=== PATIENT | male | born 1990 | race Caucasian/White ===

== ENCOUNTER 2022-03-20 13:10 | Observation (INO) | payer OTHER ==
[~2022-03-20] VITALS: Ht 172.7 cm; Wt 113.3 kg
[2022-03-20 13:20] VITALS: BP 133/78
[2022-03-20] MEDS ORDERED: LEXAPRO20 MG PO (13:42)
[2022-03-20] MEDS ORDERED: DEXT30CA6 PO (13:42)
[2022-03-20] MEDS ORDERED: CETI10CA PO (13:42)
[2022-03-20] MEDS ORDERED: ACETAMINOPHEN 325 MG TABLET. PO PRN (14:00)
[2022-03-20] MEDS ORDERED: MORPHINE SULFATE 2 MG/ML INJ. IV PRN (14:00)
[2022-03-20] MEDS ORDERED: ALBUTEROL SULFATE 2.5 MG/3 ML NEBU. NEB PRN (14:00)
[2022-03-20] MEDS ORDERED: KETOROLAC 15 MG/ML VIAL. IV PRN (14:00)
[2022-03-20] MEDS ORDERED: MAGNESIUM HYDROXIDE 2,400 MG/30 ML ORAL.SUSP. PO PRN (14:00)
[2022-03-20] MEDS ORDERED: BISACODYL 10 MG SUPP.RECT. PR PRN (14:00)
[2022-03-20] MEDS ORDERED: IV RINGERS,LACTATED 1000ML 1,000 ML IV SCH (14:00)
--- NOTE | 2022-03-20 14:12 | PDOC1 ---
History and Physical Date of Admission Date of Admission DATE: 03/20/22 TIME: 13:57 Identification/Chief Complaint Chief Complaint Rectal foreign body Source Source: Patient History of Present Illness History of Present Illness Mr Martinez is a 31-year-old male with PMHx ADHD, asthma, seasonal allergies who presented to [facility] ED in [place], [place] with his with concern for rectal foreign body. He notes he experimentally lodged a plastic ice cream scoop in his rectum yesterday, 03/19/2022 around noon. He notes the sensation surprised him and he fell backwards onto a chair and felt the scalp go completely into his body and attempted to dislodge it with 2 fingers in his rectum and was able to touch the edge of the scoop but was not successful and even being able to pull on it. He asked for his 's assistance. He notes that she laughed and advised he should seek medical assistance. Had a little bit of rectal bleeding. It has not come back out. He denies significant pain. No fever or chills. No recent travel or sick contacts He has the urge to have a bowel movement but is only been able to pass gas. He decided to come to the ED for further care. He rarely drinks does not smoke and does not use illicit drugs. 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 A KUB with some mild prominent loops of bowel. A CT scan performed with a 10 cm foreign object with no radiopacity or metallic findings noted centimeters into the rectum. In the ED in [place] speculum examination was performed unable to dislodge object and called [facility] for transfer for surgical evaluation for removal of rectal foreign body. Patient was seen bedside in no significant distress. Past Medical History Pulmonary: Asthma Psych: Depression, Other (ADHD) Past Surgical History Past Surgical History: Other (Right Achilles tendon correction as a child) Family History Family History: Hypertension (Father and paternal grandfather) Social History Smoke: No ALCOHOL: rare Current Medications Current Medications Active Scripts Active Reported Zyrtec (Cetirizine Hcl) 10 Mg Capsule 10 Mg PO DAILY Lexapro (Escitalopram Oxalate) 20 Mg Tablet 1 Tab PO DAILY Adderall Xr 30 Mg Capsule (Dextroamphetamine/Amphetamine) 30 Mg Cap.er.24h 1 Cap PO DAILYWBKFT MDD 1 Capsule(s) 30 Days Allergies Allergies: Coded Allergies: No Known Drug Allergies (Unverified , 03/20/22) ROS General: No: Chills, Night Sweats, Fatigue, Malaise, Appetite, Other PSYCHOLOGICAL ROS: No: Anxiety, Behavioral Disorder, Concentration difficultie, Decreased libido, Depression, Disorientation, Hallucinations, Hostility, Irritablity, Memory difficulties, Mood Swings, Obsessive thoughts, Physical abuse, Sexual abuse, Sleep disturbances, Suicidal ideation, Other Eyes: No Blurry vision, No Decreased vision, No Double vision, No Dry eyes, No Excessive tearing, No Eye Pain, No Itchy Eyes, No Loss of vision, No Photophobia, No Scotomata, No Uses contacts, No Uses glasses, No Other HEENT: No: Heacaches, Visual Changes, Hearing change, Nasal congestion, Nasal discharge, Oral lesions, Sinus pain, Sore Throat, Epistaxis, Sneezing, Snoring, Tinnitus, Vertigo, Vocal changes, Other ALLERGY AND IMMUNOLOGY: No: Hives, Insect Bite Sensitivity, Itchy/Watery Eyes, Nasal Congestion, Post Nasal Drip, Seasonal Allergies, Other Hematological and Lymphatic: No: Bleeding Problems, Blood Clots, Blood Transfusions, Brusing, Night Sweats, Pallor, Swollen Lymph Nodes, Other ENDOCRINE: No: Breast Changes, Galactorrhea, Hair Pattern Changes, Hot Flashes, Malaise/lethargy, Mood Swings, Palpitations, Polydipsia/polyuria, Skin Changes, Temperature Intolerance, Unexpected Weight Changes, Other Breast: No New/Changing Breast Lumps, No Nipple changes, No Nipple discharge, No Other Respiratory: No: Cough, Hemoptysis, Orthopnea, Pleuritic Pain, Shortness of breath, SOB with excertion, Sputum Changes, Stridor, Tachypnea, Wheezing, Other Cardiovascular: No Chest Pain, No Palpitations, No Orthopnea, No Paroxysmal Noc. Dyspnea, No Edema, No Lt Headedness, No Other Gastrointestinal: No Nausea, No Vomiting, No Abdominal Pain, No Diarrhea, No Constipation, No Melena, No Hematochezia, No Other Genitourinary: No Dysuria, No Frequency, No Incontinence, No Hematuria, No Retention, No Discharge, No Urgency, No Pain, No Flank Pain, No Other, No , No , No , No , No , No , No Musculoskeletal: No Gait Disturbance, No Joint Pain, No Joint Stiffness, No Joint Swelling, No Muscle Pain, No Muscular Weakness, No Pain In:, No Swelling In:, No Other Neurological: No Behavorial Changes, No Bowel/Bladder ControlChng, No Confusion, No Dizziness, No Gait Disturbance, No Headaches, No Impaired Coor d/balance, No Memory Loss, No Numbness/Tingling, No Seizures, No Speech Problems, No Tremors, No Visual Changes, No Weakness, No Other Skin: No Dry Skin, No Eczema, No Hair Changes, No Lumps, No Mole Changes, No Mottling, No Nail Changes, No Pruritus, No Rash, No Skin Lesion Changes, No Other, No Acne Physical Exam General: Alert, Oriented X3, Cooperative, mild distress HEENT: Atraumatic, PERRLA, EOMI, Mucous membr. moist/pink Lungs: Clear to auscultation, Normal air movement Heart: S1S2, RRR, no thrills, no rubs, no gallops, no murmurs Abdomen: Normal bowel sounds, Soft, No tenderness, No hepatosplenomegaly, No masses Rectal Exam: other Extremities: No clubbing, No cyanosis, No edema, Normal pulses, No tenderness/swelling Skin: No rashes, No breakdown, No significant lesion Neuro: Normal gait, Normal speech, Strength at 5/5 X4 ext, Normal tone, Sensation intact, Cranial nerves 3-12 NL, Reflexes 2+ Psych/Mental Status: Mental status NL, Mood NL Vitals Vitals Vital Signs Date Time Temp Pulse Resp B/P (MAP) Pulse Ox O2 Delivery O2 Flow Rate FiO2 03/20/22 13:20 98.0 80 18 133/78 (96) 98 Room Air 98.0 Images Images KUB Abdomen: Single view obtained. Projecting over the sacrum asymmetric to the right there is a radiolucency identified measuring approximately 14 x 4 cm. Given the linear appearance with rounded edge a radiolucent foreign body could have this appearance. Cannot assess for intraperitoneal free air on this single supine radiograph but this can be better evaluated on the already ordered CT of the abdomen and pelvis. Nonspecific bowel gas pattern with a mildly prominent loop of small bowel the right-sided the abdomen measuring up to 26 mm. VTE Prophylaxis Ordered VTE Prophylaxis Devices: Yes VTE Pharmacological Prophylaxi: No Assessment/Plan Assessment/Plan Rectal foreign body - no signs of perforation on CT. Discussed with general surgery will attempt to get an OR time soon to be able to remove object likely can go home immediately after removal after observation. No further testing prior to planned surgery Asthma - on symbicort daily and prn albuterol ADHD - on adderall Depression - on lexapro Overweight -counseled on lifestyle modification FEN - NPO PPX - ambulatory FULL CODE Dispo - observation Justifications for Admission Other Justification BRONWYN BERMUDEZ MD Mar 20, 2022 14:12
[2022-03-20 15:00] VITALS: BP 153/78
[2022-03-20 19:00] VITALS: BP 134/79
[2022-03-20] MEDS ORDERED: MORPHINE SULFATE 2 MG/ML INJ. IVP PRN (20:00)
[2022-03-20 23:00] VITALS: BP 132/64
[2022-03-21] VITALS (9 sets, daily range): BP systolic 109–140; BP diastolic 61–88
[2022-03-21] MEDS ORDERED: PROCHLORPERAZINE 10 MG/2 ML VIAL. IVP PRN (06:00)
[2022-03-21] MEDS ORDERED: fentaNYL PF VIAL 100 MCG/2 ML VIAL IVP PRN ×2 (06:00)
[2022-03-21] MEDS ORDERED: IV RINGERS,LACTATED 1000ML 1,000 ML IV SCH (06:00)
[2022-03-21] MEDS ORDERED: HYDROmorphone 2 MG/ML INJ. IVP PRN (06:00)
--- NOTE | 2022-03-21 07:44 | PDOC2 ---
CONSULT Date of Consult Date of Consult DATE: 03/21/22 TIME: 07:41 History of Present Illness Reason for Visit: The patient is a 31 year old male who reported to [facility] ER yesterday due to a rectal foreign body. He states he introduced a plastic scoop in the rectum two days ago and was unable to retrieve it. He reports a small amount of bleeding and no pain. Past Medical History Pulmonary: Asthma Psych: Depression, Other (ADHD) Past Surgical History Past Surgical History: Other (Right Achilles tendon correction as a child) Family History Family History: Hypertension (Father and paternal grandfather) Social History No ALCOHOL: rare Current Medications Current Medications Current Medications Ringer's Solution 1,000 ml @ 100 mls/hr Q10H IV Last administered on 03/20/22at 14:40; Start 03/20/22 at 14:00; Stop 03/20/22 at 23:59; Status DC Morphine Sulfate (Morphine Sulfate) 2 mg PRN Q1HR PRN IV PAIN-SEE COMMENTS; Start 03/20/22 at 14:00 Ketorolac Tromethamine (Toradol 15mg Vial) 15 mg PRN Q6HRS PRN IV MODERATE PAIN; Start 03/20/22 at 14:00; Stop 03/25/22 at 13:59 Acetaminophen (Tylenol) 650 mg PRN Q6HRS PRN PO Headaches, Temp > 101.5F Last administered on 03/20/22at 20:17; Start 03/20/22 at 14:00 Magnesium Hydroxide (Milk Of Magnesia) 2,400 mg PRN Q12HR PRN PO CONSTIPATION; Start 03/20/22 at 14:00 Bisacodyl (Dulcolax Supp) 10 mg PRN DAILY PRN MT CONSTIPATION; Start 03/20/22 at 14:00 Cetirizine HCl (ZyrTEC) 10 mg DAILY PO ; Start 03/21/22 at 09:00 Non-Formulary Medication (Dextroamphetamine/ Amphetamine (Adderall Xr 30 Mg Capsule)) 1 cap DAILYWBKFT PO ; Start 03/21/22 at 08:00; Status UNV Citalopram Hydrobromide (CeleXA) 40 mg DAILY PO ; Start 03/21/22 at 09:00 Albuterol Sulfate (Ventolin Neb Soln) 2.5 mg PRN Q4HRS PRN NEB SHORTNESS OF BREATH; Start 03/20/22 at 14:00 Fentanyl Citrate (Fentanyl 2ml Vial) 25 mcg PRN Q5MIN PRN IVP MILD PAIN 1-3; Start 03/21/22 at 06:00; Stop 03/21/22 at 20:00 Fentanyl Citrate (Fentanyl 2ml Vial) 50 mcg PRN Q5MIN PRN IVP MODERATE PAIN 4- 6; Start 03/21/22 at 06:00; Stop 03/21/22 at 20:00 Morphine Sulfate (Morphine Sulfate) 1 mg PRN Q10MIN PRN IVP SEVERE PAIN 7-10; Start 03/20/22 at 20:00; Stop 03/21/22 at 19:59 Ringer's Solution 1,000 ml @ 30 mls/hr Q24H IV ; Start 03/21/22 at 06:00; Stop 03/21/22 at 17:59 Hydromorphone HCl (Dilaudid) 0.5 mg PRN Q10MIN PRN IVP SEVERE PAIN 7-10, 2nd CHOICE; Start 03/21/22 at 06:00; Stop 03/21/22 at 20:00 Prochlorperazine Edisylate (Compazine) 5 mg PACU PRN PRN IVP NAUSEA, MRX1; Start 03/21/22 at 06:00; Stop 03/21/22 at 20:00 Active Scripts Active Reported Zyrtec (Cetirizine Hcl) 10 Mg Capsule 10 Mg PO DAILY Lexapro (Escitalopram Oxalate) 20 Mg Tablet 1 Tab PO DAILY Adderall Xr 30 Mg Capsule (Dextroamphetamine/Amphetamine) 30 Mg Cap.er.24h 1 Cap PO DAILYWBKFT MDD 1 Capsule(s) 30 Days Allergies Allergies: Coded Allergies: No Known Drug Allergies (Unverified , 03/20/22) ROS General: No: Chills, Night Sweats, Fatigue, Malaise, Appetite, Other PSYCHOLOGICAL ROS: No: Anxiety, Behavioral Disorder, Concentration difficultie, Decreased libido, Depression, Disorientation, Hallucinations, Hostility, Irritablity, Memory difficulties, Mood Swings, Obsessive thoughts, Physical abuse, Sexual abuse, Sleep disturbances, Suicidal ideation, Other Eyes: No Blurry vision, No Decreased vision, No Double vision, No Dry eyes, No Excessive tearing, No Eye Pain, No Itchy Eyes, No Loss of vision, No Photophobia, No Scotomata, No Uses contacts, No Uses glasses, No Other HEENT: No: Heacaches, Visual Changes, Hearing change, Nasal congestion, Nasal discharge, Oral lesions, Sinus pain, Sore Throat, Epistaxis, Sneezing, Snoring, Tinnitus, Vertigo, Vocal changes, Other ALLERGY AND IMMUNOLOGY: No: Hives, Insect Bite Sensitivity, Itchy/Watery Eyes, Nasal Congestion, Post Nasal Drip, Seasonal Allergies, Other Hematological and Lymphatic: No: Bleeding Problems, Blood Clots, Blood Transfusions, Brusing, Night Sweats, Pallor, Swollen Lymph Nodes, Other ENDOCRINE: No: Breast Changes, Galactorrhea, Hair Pattern Changes, Hot Flashes, Malaise/lethargy, Mood Swings, Palpitations, Polydipsia/polyuria, Skin Changes, Temperature Intolerance, Unexpected Weight Changes, Other Respiratory: No: Cough, Hemoptysis, Orthopnea, Pleuritic Pain, Shortness of breath, SOB with excertion, Sputum Changes, Stridor, Tachypnea, Wheezing, Other Cardiovascular: No Chest Pain, No Palpitations, No Orthopnea, No Paroxysmal Noc. Dyspnea, No Edema, No Lt Headedness, No Other Gastrointestinal: No Nausea, No Vomiting, No Abdominal Pain, No Diarrhea, No Constipation, No Melena, No Hematochezia, No Other Genitourinary: No Dysuria, No Frequency, No Incontinence, No Hematuria, No Retention, No Discharge, No Urgency, No Pain, No Flank Pain, No Other, No , No , No , No , No , No , No Skin: No Dry Skin, No Eczema, No Hair Changes, No Lumps, No Mole Changes, No Mottling, No Nail Changes, No Pruritus, No Rash, No Skin Lesion Changes, No Other, No Acne Physical Exam General: Alert, No acute distress HEENT: Atraumatic, PERRLA Lungs: Clear to auscultation Heart: Regular rate Abdomen: Soft, No tenderness Extremities: No clubbing, No cyanosis Skin: No rashes Neuro: Normal speech Psych/Mental Status: Mental status NL Vitals VITALS Vital Signs Date Time Temp Pulse Resp B/P (MAP) Pulse Ox O2 Delivery O2 Flow Rate FiO2 03/21/22 03:00 98.6 74 16 140/77 (98) 95 Room Air 98.[address] reviewed Assessment/Plan Assessment/Plan 31 year old male with rectal foreign body, no suggestion of perforation. Plan to OR for retrieval under anesthesia. The details and risks of surgery were discussed with the patient. He understands and would like to proceed. WOLFGANG CHAMPAGNE MD Mar 21, 2022 07:44
--- NOTE | 2022-03-21 07:45 | PDOC ---
[employer] PROGRESS NOTE Date of Service DOS: DATE: 03/21/22 TIME: 07:44 Chief Complaint Chief Complaint Rectal foreign body - no signs of perforation on CT. Removed in OR. Can go home immediately after removal after observation. Asthma - on symbicort daily and prn albuterol ADHD - on adderall Depression - on lexapro Overweight -counseled on lifestyle modification FEN - Regular diet PPX - ambulatory FULL CODE Dispo - observation History of Present Illness History of Present Illness Mr Martinez is a 31-year-old male with PMHx ADHD, asthma, seasonal allergies who presented to [facility] ED in [place], [place] with his with concern for rectal foreign body. He notes he experimentally lodged a plastic ice cream scoop in his rectum yesterday, 03/19/2022 around noon. He notes the sensation surprised him and he fell backwards onto a chair and felt the scalp go completely into his body and attempted to dislodge it with 2 fingers in his rectum and was able to touch the edge of the scoop but was not successful and even being able to pull on it. He asked for his 's assistance. He notes that she laughed and advised he should seek medical assistance. Had a little bit of rectal bleeding. It has not come back out. He denies significant pain. No fever or chills. No recent travel or sick contacts He has the urge to have a bowel movement but is only been able to pass gas. He decided to come to the ED for further care. He rarely drinks does not smoke and does not use illicit drugs. 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 A KUB with some mild prominent loops of bowel. A CT scan performed with a 10 cm foreign object with no radiopacity or metallic findings noted centimeters into the rectum. In the ED in [place] speculum examination was performed unable to dislodge object and called [facility] for transfer for surgical evaluation for removal of rectal foreign body. Patient was seen bedside in no significant distress. 03/21: Seen post-operatively. No complications with removal of foreign object which today screams acute. Patient has no pelvic pain complaints no blood per rectum. Tolerating diet well critical home with general surgery follow-up Vitals/I&O Vitals/I&O: Vital Signs Date Time Temp Pulse Resp B/P (MAP) Pulse Ox O2 Delivery O2 Flow Rate FiO2 03/21/22 03:00 98.6 74 16 140/77 (98) 95 Room Air 98.6 I & O 03/20/22 03/20/22 03/21/22 15:00 23:00 07:00 Output Total 800 ml 600 ml 200 ml Balance -800 ml -600 ml -200 ml Physical Exam General: Alert, Oriented X3, Cooperative, mild distress Abdomen: Normal bowel sounds, Soft, No tenderness, No hepatosplenomegaly, No masses Extremities: No clubbing, No cyanosis, No edema, Normal pulses, No tenderness/swelling Skin: No rashes, No breakdown, No significant lesion Comment Review of Relevant I have reviewed the following items robin (where applicable) has been applied. Medications: Current Medications Medications (Trade) Dose Ordered Sig/Kathrine Route PRN Reason Start Time Stop Time Status Last Admin Dose Admin Ringer's Solution 1,000 ml @ 100 mls/hr Q10H IV 03/20/22 14:00 03/20/22 23:59 DC 03/20/22 14:40 Acetaminophen (Tylenol) 650 mg PRN Q6HRS PRN PO Headaches, Temp > 101.5F 03/20/22 14:00 03/20/22 20:17 Justifications for Admission Abdominal Pain Indications Is patient in severe pain?: Yes Justification for admission: Patient has severe pain that requires (parenteral analgesic-please state analgesics and route) at least every 4 hours necessitating inpatient level of care. Is NPO status required?: Yes Justification for admission: Patient may require to be NPO for greater 24hours making it medically necessary to manage patient as inpatient. Other Justification BRONWYN BERMUDEZ MD Mar 21, 2022 07:45
[2022-03-21] MEDS ORDERED: NON FORMULARY ITEM (Dextroamphetamine/Amphetamine (Adderall Xr 30 Mg Capsule) 1 CAP) PO SCH (08:00)
[2022-03-21] MEDS ORDERED: ONDANSETRON PF 4 MG/2 ML VIAL. ONE (08:56)
[2022-03-21] MEDS ORDERED: ROCURONIUM 50 MG/5 ML VIAL. ONE (08:56)
[2022-03-21] MEDS ORDERED: PROPOFOL 10 MG/ML (20ML) VIAL. IV ONE ×2 (08:56→11:12)
[2022-03-21] MEDS ORDERED: DEXAMETHASONE SOD PHOS 4 MG/ML VIAL ONE (08:56)
[2022-03-21] MEDS ORDERED: fentaNYL PF VIAL 100 MCG/2 ML VIAL ONE (08:57)
[2022-03-21] MEDS ORDERED: CITALOPRAM 20 MG TABLET. PO SCH (09:00)
[2022-03-21] MEDS ORDERED: CETIRIZINE HCL 10 MG TABLET. PO SCH (09:00)
[2022-03-21] MEDS ORDERED: GELATIN SPONGE SIZE 100. ONE (10:44)
[2022-03-21] MEDS ORDERED: BUPIVACAINE-EPI 0.5% 30 ML VIAL KIT. ONE (10:44)
[2022-03-21] MEDS ORDERED: SUCCINYLCHOLINE 200 MG/10 ML VIAL. ONE (11:01)
[2022-03-21] MEDS ORDERED: GLYCOPYRROLATE 1 MG/5 ML VIAL. ONE (11:13)
--- NOTE | 2022-03-21 11:45 | PDOC4 ---
Operative Note Operative Note Operative Note: Preoperative Diagnosis: Rectal foreign object Postoperative Diagnosis: Same Procedure: Removal of rectal foreign object Surgeon: [employer]ne [employer] Stress Analyst: Reji Goodrich, MS 4 Anesthesia: General EBL: 5 mL Specimen: Rectal foreign object to pathology Drains: None Complications: None Indication: The patient is a 31-year-old male presented through the emergency department with a rectal foreign object that cannot be retrieved. The plan is for removal of the object in the operating room. The risks of surgery were discussed with the patient which include bleeding, perforation, rectal damage, anesthetic risk, potential need for additional surgery procedure. He understands and would like to proceed. Description: The patient was taken the operating room and placed supine on the operating table. General anesthesia was performed. He was then placed in lithotomy. The perianal skin was prepped with Betadine draped in a standard s urgical manner. Lubrication was applied to the anal canal and the speculum was placed. The foreign object cannot immediately be visualized. Digitally I was able to feel the tip of the foreign object. With gradual manipulation I was able to grasp and eventually retrieve the foreign object which came out intact as a single item. 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 The specimen was sent to pathology. No significant bleeding was encountered. A gauze dressing was applied. The patient tolerated the procedure well and was sent to the recovery room in stable condition. At the end of the case all counts were correct. WOLFGANG CHAMPAGNE MD Mar 21, 2022 11:45
--- NOTE | 2022-03-21 13:48 | PDOC3 ---
Discharge Summary Visit Information Date of Admission: Mar 20, 2022 Date of Discharge: Mar 21, 2022 Admitting Diagnosis: Foreign body in rectum Final Diagnosis Foreign body in rectum Brief Hospital Course Allergies Allergies Coded Allergies Type Severity Reaction Last Updated Verified No Known Drug Allergies 03/20/22 No Vital Signs Vital Signs Date Time Temp Pulse Resp B/P (MAP) Pulse Ox O2 Delivery O2 Flow Rate FiO2 03/21/22 12:03 98.6 82 15 116/64 94 Room Air 98.6 Brief Hospital Course Mr Martinez is a 31-year-old male with PMHx ADHD, asthma, seasonal allergies who presented to [facility] ED in [place], [place] with his with concern for rectal foreign body. He notes he experimentally lodged a plastic ice cream scoop in his rectum yesterday, 03/19/2022 around noon. He notes the sensation surprised him and he fell backwards onto a chair and felt the scalp go completely into his body and attempted to dislodge it with 2 fingers in his rectum and was able to touch the edge of the scoop but was not successful and even being able to pull on it. He asked for his 's assistance. He notes that she laughed and advised he should seek medical assistance. Had a little bit of rectal bleeding. It has not come back out. He denies significant pain. No fever or chills. No recent travel or sick contacts He has the urge to have a bowel movement but is only been able to pass gas. He decided to come to the ED for further care. He rarely drinks does not smoke and does not use illicit drugs. 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 A KUB with some mild prominent loops of bowel. A CT scan performed with a 10 cm foreign object with no radiopacity or metallic findings noted centimeters into t he rectum. In the ED in [place] speculum examination was performed unable to dislodge object and called [facility] for transfer for surgical evaluation for removal of rectal foreign body. Patient was seen bedside in no significant distress. 03/21: Seen post-operatively. No complications with removal of foreign object which today screams acute. Patient has no pelvic pain complaints no blood per rectum. Tolerating diet well critical home with general surgery follow-up Consults: General surgery Problem list: Rectal foreign body - no signs of perforation on CT. Removed in OR. Can go home immediately after removal after observation. Asthma - on symbicort daily and prn albuterol ADHD - on adderall Depression - on lexapro Overweight -counseled on lifestyle modification Greater than 30 minutes spent on discharge home with self-care Discharge Information Condition at Discharge: Improved Follow Up: Weeks (1) Disposition/Orders: D/C to Home Scheduled Cetirizine Hcl (Zyrtec) 10 Mg Capsule, 10 MG PO DAILY for allergies, (Reported) Entered as Reported by: WISAM JOHNSON on 03/20/221341 Last Action: Converted on 03/20/221401 by BRONWYN BERMUDEZ MD Dextroamphetamine/Amphetamine (Adderall Xr 30 Mg Capsule) 30 Mg Cap.er.24h, 1 CAP PO DAILYWBKFT for ADHD MDD 1 Capsule(s) for 30 Days, #30 Ref 0 (Reported) Entered as Reported by: WISAM JOHNSON on 03/20/221341 Last Action: Converted on 03/20/221401 by BRONWYN BERMUDEZ MD Escitalopram Oxalate (Lexapro) 20 Mg Tablet, 1 TAB PO DAILY for depression, #90 Ref 3 (Reported) Entered as Reported by: WISAM JOHNSON on 03/20/221341 Last Action: Converted on 03/20/221401 by BRONWYN BERMUDEZ MD Justicifation of Admission Dx: Justifications for Admission: Justification of Admission Dx: Yes BRONWYN BERMUDEZ MD Mar 21, 2022 13:48
--- NOTE | 2022-03-21 15:10 | NUR ---
Discharge Note: JESU L[facility] Discharge instructions and discharge home medications reviewed with Patient and a copy given. All questions have been answered and understanding verbalized. The following instructions and handouts were given: Discontinued lines and drains: Peripheral IV intact. Patient discharged to Home or Self Care with Family Member via Ambulated.
== END 2022-03-21 15:10 | disposition home or self-care (01) ==
LOC: 2 NORTH 13:10
PROVIDERS: ADMIT Internal Medicine; ATTEND Internal Medicine
DX: T18.5XXA Foreign body in anus and rectum, initial encounter (principal); J45.909 Unspecified asthma, uncomplicated; F90.9 Attention-deficit hyperactivity disorder, unspecified type; F32.A Depression, unspecified; E66.3 Overweight; K62.5 Hemorrhage of anus and rectum; Z68.38 Body mass index [BMI] 38.0-38.9, adult; W07.XXXA Fall from chair, initial encounter; Y92.89 Other specified places as the place of occurrence of the external cause; Y93.89 Activity, other specified; Y99.8 Other external cause status
CPT/HCPCS: 45915; A4930; G0378; G0379; J0330; J1100; J2405; J2704; J3010; J3490; J7120